=== PATIENT | female | born 1975 | race Caucasian/White ===

== ENCOUNTER 2016-08-31 08:22 | Day surgery (SDC) | payer OTHER ==
[~2016-08-31] VITALS: Ht 170.2 cm; Wt 90.7 kg
[~2016-08-31 08:22] MED LIST: ACYCLOVIR800 MG PO; ADVAIR DISK1 INH; ASPIRIN325 MG PO; BENADRY1 PO; CLOBETASOL0.051 EX; FLONASE AL50 MCG/ACT; FLOVENT HFA110 MCG IN; NEURONTIN400 MG PO; PROAIR HFA IN; PROVENTIL IN
[2016-08-31 10:14] VITALS: BP 109/72
== END 2016-08-31 10:40 | disposition home or self-care (01) | DRG 552 ==
LOC: ORM 08:22
PROVIDERS: ATTEND Anesthesiology Pain Medicine
PROC: 3E0T3BZ Introduction of Anesthetic Agent into Peripheral Nerves and Plexi, Percutaneous Approach (ICD-10-PCS; principal; 2016-08-31)
PROC: 3E0T33Z Introduction of Anti-inflammatory into Peripheral Nerves and Plexi, Percutaneous Approach (ICD-10-PCS; 2016-08-31)
PROC: 3E0T3BZ Introduction of Anesthetic Agent into Peripheral Nerves and Plexi, Percutaneous Approach (ICD-10-PCS; 2016-08-31)
PROC: 3E0T33Z Introduction of Anti-inflammatory into Peripheral Nerves and Plexi, Percutaneous Approach (ICD-10-PCS; 2016-08-31)
DX: M54.5 Low back pain (principal); M51.36 Other intervertebral disc degeneration, lumbar region

== ENCOUNTER 2016-09-14 06:07 | Day surgery (SDC) | payer OTHER ==
[~2016-09-14] VITALS: Ht 170.2 cm; Wt 90.7 kg
[2016-09-14 08:19] VITALS: BP 124/76
== END 2016-09-14 08:45 | disposition home or self-care (01) | DRG 552 ==
LOC: ORM 06:07
PROVIDERS: ATTEND Anesthesiology Pain Medicine
PROC: 3E0T3BZ Introduction of Anesthetic Agent into Peripheral Nerves and Plexi, Percutaneous Approach (ICD-10-PCS; principal; 2016-09-14)
PROC: 3E0T33Z Introduction of Anti-inflammatory into Peripheral Nerves and Plexi, Percutaneous Approach (ICD-10-PCS; 2016-09-14)
PROC: 3E0T3BZ Introduction of Anesthetic Agent into Peripheral Nerves and Plexi, Percutaneous Approach (ICD-10-PCS; 2016-09-14)
PROC: 3E0T33Z Introduction of Anti-inflammatory into Peripheral Nerves and Plexi, Percutaneous Approach (ICD-10-PCS; 2016-09-14)
DX: M54.5 Low back pain (principal); M51.36 Other intervertebral disc degeneration, lumbar region

== ENCOUNTER 2016-11-30 06:56 | Day surgery (SDC) | payer OTHER ==
[~2016-11-30 06:56] MED LIST changes: +IBUPROFEN600 MG PO
[2016-11-30 13:11] VITALS: BP 115/82
== END 2016-11-30 09:30 | disposition home or self-care (01) | DRG 552 ==
LOC: ORM 06:56
PROVIDERS: ATTEND Anesthesiology Pain Medicine
PROC: 3E0T3TZ Introduction of Destructive Agent into Peripheral Nerves and Plexi, Percutaneous Approach (ICD-10-PCS; principal; 2016-11-30)
DX: M54.5 Low back pain (principal); M51.36 Other intervertebral disc degeneration, lumbar region

== ENCOUNTER 2024-04-02 18:33 | Emergency (ER) | payer MEDICAID ==
[~2024-04-02] VITALS: Ht 170.2 cm; Wt 83.9 kg
[~2024-04-02 18:33] MED LIST changes: +VOLTAREN1%GEL TOP
[2024-04-02 18:42] VITALS: BP 131/95
[2024-04-02 18:45] VITALS: BP 147/78
[2024-04-02] MEDS ORDERED: ISOVUE-300 (Iopamidol) 100 ML SDV IV ONE (18:45)
[2024-04-02] MEDS ORDERED: SODIUM CHLORIDE 0.9% 1,000 ML IV ONE (18:45)
[2024-04-02] MEDS ORDERED: ONDANSETRON HCl 4 MG/2 ML SDV IV ONE (18:45)
[2024-04-02] MEDS ORDERED: KETOROLAC TROMETHAMINE 15 MG/ML SDV IV ONE (18:45)
[2024-04-02 18:53] LABS: BASO% 0.2 % (0-3); IMMATURE GRANULOCYTES 0.1 % (0.0-5.0); LYMPH% 25.3 % (15-41); MEAN CELL VOLUME 93.4 fL CALC (80.0-100.0); MEAN CORPUSCULAR HGB 30.4 pG CALC (26.0-32.0); MEAN CORPUSCULAR HGB CONC 32.5 g/dL CAL (32.0-36.0); NEUT# 7.61 thou/uL (2.00-7.15); NEUT% 68.4 % (42-76); RED BLOOD COUNT 4.87 mill/uL (4.20-5.60); RED CELL DISTRI WIDTH 12.9 % (11.5-15.5)
[2024-04-02 18:54] LABS: HEMATOCRIT 45.5 % (37.0-47.0); HEMOGLOBIN 14.8 g/dl (12.0-16.0)
[2024-04-02 19:01] VITALS: BP 127/68
[2024-04-02 19:06] LABS: ALBUMIN 4.4 g/dL (3.2-5.0); BILIRUBIN, TOTAL 0.5 mg/dL (0.02-1.3); CREATININE 0.5 mg/dL (0.5-1.0); POTASSIUM 3.9 mmol/l (3.5-5.1); TOTAL PROTEIN 7.8 g/dL (6.3-8.2)
[2024-04-02] MEDS ORDERED: TRAMADOL HYDROC50 M1 PO (19:59)
[2024-04-02 20:45] VITALS: BP 127/68
[2024-04-09] MEDS ORDERED: SUBOXONE1 MI1 SL (09:20)
== END 2024-04-02 20:45 | disposition home or self-care (01) ==
LOC: ED 18:33
PROVIDERS: Family Medicine
DX: K80.20 Calculus of gallbladder without cholecystitis without obstruction (principal); J45.909 Unspecified asthma, uncomplicated; G62.9 Polyneuropathy, unspecified; Z72.0 Tobacco use
CPT/HCPCS: J1885; J2405; Q9967

== ENCOUNTER 2024-05-02 10:35 | Day surgery (SDC) | payer MEDICAID ==
[~2024-05-02] VITALS: Ht 167.6 cm; Wt 81.6 kg
[~2024-05-02 10:35] MED LIST changes: +SUBOXONE1 MI1 SL; +TRAMADOL HYDROC50 M1 PO; +VENTOLIN HFA108 MCG IN
[2024-05-02] MEDS ORDERED: LACTATED RINGER'S 1,000 ML IV ONE (10:39)
[2024-05-02] MEDS ORDERED: FAMOTIDINE 10MG/ML 2ML SDV IV ONE (10:39)
[2024-05-02] MEDS ORDERED: SODIUM CHLORIDE 0.9% 0 ML IV ONE (10:40)
[2024-05-02] MEDS ORDERED: ceFAZolin Sodium 2 GM/VIAL SDV ONE (10:40)
[2024-05-02] MEDS ORDERED: ISOVUE-300 (Iopamidol) 100 ML SDV IV ONE (10:54)
[2024-05-02] MEDS ORDERED: GLUCAGON HCL (Rdna) 1 MG VIAL ONE (10:55)
[2024-05-02] MEDS ORDERED: CLINDAMYCIN PHOSPHATE 50 ML IV SCH (11:00)
[2024-05-02] MEDS ORDERED: SODIUM CHLORIDE 1,000 ML BTL IR ONE (11:40)
[2024-05-02] MEDS ORDERED: LIDOcaine HCl 1% (Local Anesth.) 20 ML VIAL ONE (11:40)
[2024-05-02] MEDS ORDERED: STERILE WATER FOR IRRIGATION 1,000 ML BTL IR ONE (11:40)
[2024-05-02] MEDS ORDERED: PERCOCET 5/325M1 TAB PO (13:25)
[2024-05-02] MEDS ORDERED: ACETAMINOPHEN 100 ML IV ONE (13:41)
[2024-05-02] MEDS ORDERED: HYDROmorphone HCL 2 MG/AMP ONE (13:55)
[2024-05-02] MEDS ORDERED: KETOROLAC TROMETHAMINE 30 MG/ML SDV ONE (14:46)
[2024-05-02 15:13] VITALS: BP 100/59
[2024-05-02] MEDS ORDERED: SUGAMMADEX SODIUM 200 MG/2 ML SDV IV ONE (16:15)
[2024-05-02] MEDS ORDERED: PROPOFOL 200 MG/20 ML VIAL IV ONE (16:15)
[2024-05-02] MEDS ORDERED: LIDOCAINE HCL 2% 2ML SDV IV ONE (16:15)
[2024-05-02] MEDS ORDERED: ROCURONIUM BROMIDE 10 MG/ML 5ML VIAL IV ONE (16:15)
[2024-05-02] MEDS ORDERED: SUCCINYLCHOLINE CHLORIDE 20 MG/ML 10ML VIAL IV ONE (16:15)
[2024-05-02] MEDS ORDERED: LACTATED RINGER'S 1,000 ML BAG IV ONE (16:15)
[2024-05-02] MEDS ORDERED: METOPROLOL TARTRATE 5 MG/5 ML VIAL IV ONE (16:15)
== END 2024-05-02 15:32 | disposition home or self-care (01) ==
LOC: ORM 10:35
PROVIDERS: ATTEND Surgery
DX: K80.00 Calculus of gallbladder with acute cholecystitis without obstruction (principal); K82.1 Hydrops of gallbladder; J45.909 Unspecified asthma, uncomplicated; G62.9 Polyneuropathy, unspecified
CPT/HCPCS: J0131; J0690; J0736; J1171; J1610; Q9966